=== PATIENT | male | born 1930 | race American Indian/Alaskan Native ===

== ENCOUNTER 2017-05-24 14:27 | Emergency (ER) | payer MEDICARE ==
--- NOTE | 2017-05-24 17:38 | Emergency Department Report ---
HPI - General Chief Complaint: Hypoglycemia Time Seen by Provider: 05/24/17 17:21 - HPI HPI: Room 26 The pt is an 86 y/o M p/w a cc of hypoglycemia. [facility] a [facility] when he began behaving confused. The pts blood glu was checked and he was found to be hypoglycemic at 44. 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 The pt states he had eaten snell, grits, eggs and toast at 06:30. Then at ~ 07:00 the pt took his regular dose of Novolog 40units. The pt states he had just began eating his lunch when the above sxs started. Location: Mental state Duration: [see above] Quality: Confusion, hypoglycemia Severity: 44 Modifying factors: [see above] Context: [see above] Mode of transportation: [not driving] ED Past Medical Hx - Past Medical History Hx Diabetes: Yes Additional medical history: kidney "issues". TUSCARORA - Social History Smoking Status: Never Smoker Substance Use Type: None ED Review of Systems ROS: Stated complaint: HYPOGLYCEMIA Other details as noted in HPI Comment: All other systems reviewed and negative Constitutional: denies: chills, fever Eyes: denies: eye pain, eye discharge, vision change ENT: denies: ear pain, throat pain Respiratory: denies: cough, shortness of breath, wheezing Cardiovascular: denies: chest pain, palpitations Endocrine: no symptoms reported Gastrointestinal: denies: abdominal pain, nausea, diarrhea Genitourinary: denies: urgency, dysuria Musculoskeletal: denies: back pain, joint swelling, arthralgia Skin: denies: rash, lesions Neurological: confusion Psychiatric: denies: anxiety, depression Hematological/Lymphatic: denies: easy bleeding, easy bruising Physical Exam - Physical Exam Vital Signs: Vital Signs 05/24/17 05/24/17 14:51 15:15 Temperature 98.0 F Pulse Rate 65 Respiratory 18 18 Rate Blood Pressure 132/78 O2 Sat by Pulse 99 99 Oximetry Physical Exam: GENERAL: The patient is well-developed well-nourished male sitting on stretcher not appear to be in acute distress. [] HEENT: Normocephalic. Atraumatic. Extraocular motions are intact. Patient has moist mucous membranes. NECK: Supple. No meningitic signs are noted. There is no adenopathy noted. CHEST/LUNGS: Clear to auscultation. There is no respiratory distress noted. HEART/CARDIOVASCULAR: Regular. There is no tachycardia. There is no gallop rub or murmur. ABDOMEN: Abdomen is soft, nontender. Patient has normal bowel sounds. There is no abdominal distention. SKIN: There is no rash. There is no edema. There is no diaphoresis. NEURO: The patient is awake, alert, and oriented. The patient is cooperative. The patient has no focal neurologic deficits. The patient has normal speech. Cranial nerves II through XII grossly intact, no drift MUSCULOSKELETAL: There is no evidence of acute injury. ED Course Vital Signs 05/24/17 05/24/17 14:51 15:15 Temperature 98.0 F Pulse Rate 65 Respiratory 18 18 Rate Blood Pressure 132/78 O2 Sat by Pulse 99 99 Oximetry ED Medical Decision Making - Lab Data Laboratory Tests 05/24/17 05/24/17 15:24 17:40 POC Glucose 119 H 122 H - Medical Decision Making I explained to the patient that I recommend he be admitted to the hospital for observation overnight given the fact that he is taking insulin in addition to an oral hypoglycemic to control his blood sugar. I explained that the oral hypoglycemics are not as predictable as insulin. Patient verbalized understanding of increased risks of morbidity and/or mortality should he leave the hospital AGAINST MEDICAL ADVICE. Patient leaving AGAINST MEDICAL ADVICE. Patient glucose 121 at the time of his decision. The patient has a visitor present in the room Critical care attestation.: If time is entered above; I have spent that time in minutes in the direct care of this critically ill patient, excluding procedure time. ED Disposition Clinical Impression: Hypoglycemia Disposition: DC-07 LEFT AGAINST MED ADVICE Is pt being admited?: No Does the pt Need Aspirin: No Condition: Undetermined Referrals: PRIMARY CARE, [Primary Care Provider] - 3-5 Days Forms: AMA Form
[2017-05-24 17:45] VITALS: BP 126/71
== END 2017-05-24 17:47 | disposition left against medical advice (07) ==
LOC: ED 14:27
DX: E11.649 Type 2 diabetes mellitus with hypoglycemia without coma (principal)
CPT/HCPCS: 82962; 99283

== ENCOUNTER 2017-09-26 14:07 | Emergency (ER) | payer MEDICARE ==
[2017-09-26 16:55] VITALS: BP 152/79
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
[2017-09-26 18:11] LABS: Basophils % (Auto) 0.3 % (0.0-1.8); Eosinophils # (Auto) 0.1 K/mm3 (0.0-0.4); Eosinophils % (Auto) 1.3 % (0.0-4.3); Hematocrit 31.4 % (35.5-45.6); Hemoglobin 10.2 gm/dl (11.8-15.2); Lymphocytes # (Auto) 1.3 K/mm3 (1.2-5.4); Lymphocytes % (Auto) 16.3 % (13.4-35.0); Mean Corpuscular HGB Conc 32 % (32-34); Mean Corpuscular Hemoglobin 29 pg (28-32); Mean Corpuscular Volume 89 fl (84-94); Monocytes # (Auto) 0.7 K/mm3 (0.0-0.8); Monocytes % (Auto) 8.4 % (0.0-7.3); Platelet Count 266 K/mm3 (140-440); Red Blood Count 3.54 M/mm3 (3.65-5.03); Red Cell Distribution Width 14.8 % (13.2-15.2)
[2017-09-26 18:35] LABS: Alanine Aminotransferase 14 units/L (7-56); Albumin 3.7 g/dL (3.9-5); BUN/Creatinine Ratio 17; Blood Urea Nitrogen 35 mg/dL (9-20); Calcium 9.1 mg/dL (8.4-10.2); Hemolysis Index 6
--- NOTE | 2017-09-26 19:06 | XRay Report ---
FINAL REPORT EXAM: XR CHEST ROUTINE 2V HISTORY: Chest Pain TECHNIQUE: PA and lateral views of the chest PRIORS: None. FINDINGS: Lines, tubes, and devices: N/A Lungs and pleura: Trachea is normal in position. Lungs are clear of infiltrate, pleural effusion, vascular congestion, or pneumothorax. Cardiomediastinal silhouette: Cardiac and mediastinal silhouettes are unremarkable. Other: Bony structures are intact. IMPRESSION: No acute cardiopulmonary process seen.
--- NOTE | 2017-09-26 19:08 | XRay Report ---
FINAL REPORT EXAM: XR HIP 2-3V RT HISTORY: hip pain in the right hip TECHNIQUE: AP view of the pelvis and 2 coned-down views of the right hip. PRIORS: None. FINDINGS: No evidence for acute fracture or dislocation is seen. Joint spaces are maintained. The soft tissues demonstrate vascular calcifications. Bony mineralization is normal. IMPRESSION: No acute soft tissue or bony abnormality noted in the right hip.
[2017-09-26 20:04] LABS: Bilirubin,Urine NEG (Negative); Blood,Urine NEG (Negative); Color,Urine Yellow (Yellow); Hyaline Casts,Urine 1 /LPF; Nitrite,Urine NEG (Negative); Protein,Urine <15 mg/dL mg/dL (Negative); Urobilinogen,Urine < 2.0 mg/dL (<2.0); WBC,Urine < 1.0 /HPF (0.0-6.0)
[2017-09-26] MEDS ORDERED: NACL 0.9% 500 ML 500 ML IV ONE (20:15)
[2017-09-26] MEDS ORDERED: NACL 0.9% 1000 ML 0 ML ONE (20:28)
[2017-09-26 20:40] LABS: Partial Thromboplastin Time 28.9 Sec. (24.2-36.6)
== END 2017-09-26 20:51 | disposition left against medical advice (07) ==
LOC: ED 14:07
DX: D64.9 Anemia, unspecified (principal); I95.1 Orthostatic hypotension; E11.649 Type 2 diabetes mellitus with hypoglycemia without coma; E11.22 Type 2 diabetes mellitus with diabetic chronic kidney disease; I12.9 Hypertensive chronic kidney disease with stage 1 through stage 4 chronic kidney disease, or unspecified chronic kidney disease; N18.9 Chronic kidney disease, unspecified
CPT/HCPCS: 36415; 71046; 80053; 81001; 82962; 84484; 85025; 85610; 85730; 93005; 93010; J7030